=== PATIENT | female | born 1945 | race Caucasian/White ===

== ENCOUNTER 2017-06-26 05:04 | Inpatient (IN) | payer MEDICARE, OTHER ==
[~2017-06-26] VITALS: Ht 154.9 cm; Wt 76.6 kg
[2017-06-26 05:05] VITALS: BP 183/129
[2017-06-26] MEDS ORDERED: ASPIR 8181 MG PO (05:27)
[2017-06-26] MEDS ORDERED: VITAMINC500 PO (05:27)
[2017-06-26] MEDS ORDERED: FOSAMAX 70 MG T70 MG (05:27)
[2017-06-26] MEDS ORDERED: CALCIUM 600 +1 EAC1 PO (05:28)
[2017-06-26] MEDS ORDERED: CELEXA20 MG PO (05:28)
[2017-06-26] MEDS ORDERED: CINNAMON500 MG (05:28)
[2017-06-26 05:29] LABS: HEMOGLOBIN 10.2 gm/dL (12.0-15.0); MCH 25.7 pg (26.0-34.0); MCHC 30.8 g/dL (28.0-37.0); MCV 83.3 fL (80.0-100.0); MPV 8.1 fl. (7.2-11.1); NUCLEATED RBCS 0 /100WBC; PLATELET COUNT* 225 thou/uL (150-400); RBC 3.97 mil/uL (4.20-5.00); RDW-CV 20.2 % (10.5-14.5); WBC 5.4 thou/uL (4.0-11.0)
[2017-06-26] MEDS ORDERED: CRANBERRY400 M1 (05:29)
[2017-06-26] MEDS ORDERED: GABAPENTIN 100100 MG PO (05:29)
[2017-06-26] MEDS ORDERED: FLEXERIL (05:29)
[2017-06-26] MEDS ORDERED: HYDROCODONE-AP1 EAC6 (05:29)
[2017-06-26] MEDS ORDERED: ARAVA20 MG PO (05:30)
[2017-06-26] MEDS ORDERED: NOVOLOG FL100 UNIT/M (05:30)
[2017-06-26] MEDS ORDERED: METOPROLOL SUC200 MG PO (05:31)
[2017-06-26] MEDS ORDERED: LIDODERM1 EACH (05:31)
[2017-06-26] MEDS ORDERED: MACROBID 100 M100 M2 (05:32)
[2017-06-26 05:46] LABS: CALCIUM 7.6 mg/dL (8.5-10.1); CREATININE 0.7 mg/dL (0.6-1.3); POTASSIUM 3.6 mmol/L (3.5-5.1)
[2017-06-26 05:51] LABS: ALBUMIN 2.9 g/dL (3.4-5.0); TOTAL BILIRUBIN 0.5 mg/dL (<0.1-1.0); TOTAL PROTEIN 6.2 g/dL (6.4-8.2)
[2017-06-26 06:01] LABS: ABSOLUTE EOSINOPHILS 0.2 thou/uL (0.0-0.7); ABSOLUTE LYMPHOCYTES 0.2 thou/uL (0.8-5.3); ABSOLUTE MONOCYTES 0.4 thou/uL (0.0-1.2); ABSOLUTE NEUTROPHILS 4.6 thou/uL (1.6-8.1); ANISOCYTOSIS 1+; OVALOCYTES 1+; PLATELET ESTIMATE ADEQUATE; POIKILOCYTOSIS 1+
[2017-06-26] MEDS ORDERED: PREDNISOLONE1 GM PO (06:28)
[2017-06-26] MEDS ORDERED: TIMOLOL GL0.5 %/5 M1 INART (06:29)
[2017-06-26] MEDS ORDERED: COZAAR 25 MG TA25 M1 PO (06:30)
[2017-06-26] MEDS ORDERED: TIGAN100 MG/1 M PO (06:30)
[2017-06-26] MEDS ORDERED: ROBAXIN 750 MG750 M1 PO (06:31)
[2017-06-26 07:00] LABS: INFLUENZA A ANTIGEN None Detected (None Detect); INFLUENZA B ANTIGEN None Detected (None Detect)
[2017-06-26 07:20] VITALS: BP 147/78
[2017-06-26 07:21] LABS: URINE BILIRUBIN NEGATIVE (Negative); URINE BLOOD NEGATIVE (Negative); URINE CLARITY CLEAR; URINE COLOR YELLOW; URINE GLUCOSE-RANDOM NEGATIVE (Negative); URINE LEUKOCYTES-REFLEX NEGATIVE (Negative); URINE NITRITE-REFLEX NEGATIVE (Negative); URINE PROTEIN 2+ (Negative); URINE SPECIFIC GRAVITY 1.025 (1.005-1.030); URINE UROBILINOGEN 0.2 E.U./dl (0.2-1.0)
[2017-06-26 07:24] LABS: ACETEST (KETONE CONFIRMATORY) Large (Negative); URINE KETONES 3+ (Negative)
[2017-06-26 07:35] LABS: BACTERIA-REFLEX 1-9 Few /HPF (None Seen); CASTS None Seen /LPF (None Seen); CRYSTALS None Seen /LPF (None Seen); MUCUS None Seen strn/LPF (None Seen); SQUAMOUS 4-10 Moderate /LPF (0-3); URINE RBC 0-2 Rare /HPF (0-2); URINE WBC-REFLEX 0-5 Rare /HPF (0-5)
[2017-06-26 08:45] VITALS: BP 160/77
[2017-06-26 16:34] VITALS: BP 164/91
[2017-06-27 00:07] VITALS: BP 173/102
[2017-06-27 08:50] VITALS: BP 155/72
[2017-06-27 20:00] VITALS: BP 137/68
[2017-06-28 08:38] VITALS: BP 136/72
[2017-06-28 12:31] VITALS: BP 136/72
[2017-06-28] MEDS ORDERED: Florastor 250MG CAPS PO (13:05)
[2017-06-28] MEDS ORDERED: ACIDOPHILUS1 EAC4 PO (13:06)
== END 2017-06-28 14:45 | disposition home or self-care (01) | DRG 392 ==
LOC: M.ERS 05:04 → M.3W 06:37 → M.ERS 07:25 → M.3W 06-28 14:45
PROVIDERS: Emergency Medicine; ADMIT Internal Medicine
DX: A08.4 Viral intestinal infection, unspecified (principal); E44.0 Moderate protein-calorie malnutrition; I16.0 Hypertensive urgency; E11.9 Type 2 diabetes mellitus without complications; M19.90 Unspecified osteoarthritis, unspecified site; I10 Essential (primary) hypertension; E78.5 Hyperlipidemia, unspecified; I25.10 Atherosclerotic heart disease of native coronary artery without angina pectoris; R82.4 Acetonuria; E86.0 Dehydration; Z88.6 Allergy status to analgesic agent; Z82.49 Family history of ischemic heart disease and other diseases of the circulatory system; Z23 Encounter for immunization